=== PATIENT | female | born 1950 | race Caucasian/White ===

== ENCOUNTER 2021-09-13 01:02 | Day surgery (SDC) | payer MEDICARE, OTHER, SELFPAY ==
[2021-08-25 14:54] VITALS: BMI 30.2
--- NOTE | 2021-09-12 18:42 | PM.HPGS ---
History of Present Illness History of Present Illness Consent: Risks, benefits, and alternatives have been discussed and questions answered. Patient agrees to proceed with procedure. Chief complaint: hx of colon polyps Narrative: Candie Rosas is a 71 year old female Referred for colon cancer screening. She has history of polyps having had polyps removed when she lived in [place]. Review of Systems Review of Systems: All systems reviewed & are unremarkable except as noted in HPI and below PMFSH Past Medical History Medical History Kidney stones Osteopathia Family History Family History Father Hypertension Mother Ovarian ca Social History Social History Smoking status: Never smoker Alcohol intake: current Drinks per week: 3 Living arrangements: with family Spiritual care concerns: No Meds Home Medications and Allergies Home Medications Medication Instructions Recorded Confirmed Type butyrate 1,000 mg PO DAILY 08/03/21 08/25/21 History loratadine 10 mg tablet (Claritin) 10 mg PO DAILY 08/03/21 08/25/21 History magnesium 250 mg tablet 500 mg PO DAILY 08/03/21 08/25/21 History melatonin 10 mg capsule 10 mg PO QHS 08/03/21 08/25/21 History multivitamin (Daily Multi-Vitamin 1 tablet PO DAILY 08/03/21 08/25/21 History tablet) omeprazole magnesium 20 mg 20 mg PO DAILY 3 months #90 tabs 08/03/21 08/25/21 Rx tablet,delayed release (Prilosec OTC) Lactobacillus 1 cap PO DAILY 08/25/21 08/25/21 History acidophilus-Bifidobac.animalis 2.5 billion cell capsule (Daily Probiotic) ubidecarenone-omega 3-vit E 50 1 cap PO 3XW 08/25/21 08/25/21 History mg-300 (180-120)mg-30 unit capsule Allergies Allergy/AdvReac Type Severity Reaction Status Date / Time ezetimibe [From Zetia] Allergy Unknown Unknown Verified 09/13/21 09:04 levofloxacin [From Levaquin] Allergy Unknown Unknown Verified 09/13/21 09:04 Sulfa (Sulfonamide Allergy Unknown Unknown Verified 09/13/21 09:04 Antibiotics) Sodium tripolyphosphate Allergy Unknown Unknown Uncoded 09/13/21 09:04 Exam Resp: Auscultation: clear to auscultation bilaterally Cardio: Rate: regular rate Rhythm: regular rhythm GI: GI Palp: Yes Soft to palpation and No Tenderness to palpation present (GI) Assessment and Plan Assessment and plan (1) Colon cancer screening: Code(s): Z12.11 - Encounter for screening for malignant neoplasm of colon Status: Acute Assessment and Plan: Colonoscopy with possible biopsy or polypectomy or cautery or injection of substances.
[2021-09-13 09:05] VITALS: BP 125/81; PULSE 94; RESP 20; TEMP 36.9; O2SAT 98; BMI 29.3
[2021-09-13] MEDS: LACTATED RINGERS 1,000 ML 150 ML IV CONT (09:14)
--- NOTE | 2021-09-13 09:53 | P.PNAN_ITS ---
Anes - Initial Pre Proc Eval Procedure: Operation Date: 09/13/21 10:30 Proposed Procedures p Screening Colonoscopy - Bratxon Lima MD Date/Time: 09/13/21 09:53 Surgeon: Braxton Lima MD Pre Op Diagnosis: hx of colon polyps Patient Data Age: 71 Gender: F Height: 1.57 m Weight: 72.8 kg Last Vital Signs Temp 98.5 F 09/13/21 09:05 Pulse 94 09/13/21 09:05 Resp 20 09/13/21 09:05 BP 125/81 09/13/21 09:05 Pulse Ox 98 09/13/21 09:05 O2 Del Method Room Air 09/13/21 09:05 Allergies Allergy/AdvReac Type Severity Reaction Status Date / Time ezetimibe [From Zetia] Allergy Unknown Unknown Verified 09/13/21 09:04 levofloxacin [From Levaquin] Allergy Unknown Unknown Verified 09/13/21 09:04 Sulfa (Sulfonamide Allergy Unknown Unknown Verified 09/13/21 09:04 Antibiotics) Sodium tripolyphosphate Allergy Unknown Unknown Uncoded 09/13/21 09:04 Home Medications Medication Instructions Recorded Confirmed Type butyrate 1,000 mg PO DAILY 08/03/21 08/25/21 History loratadine 10 mg tablet (Claritin) 10 mg PO DAILY 08/03/21 08/25/21 History magnesium 250 mg tablet 500 mg PO DAILY 08/03/21 08/25/21 History melatonin 10 mg capsule 10 mg PO QHS 08/03/21 08/25/21 History multivitamin (Daily Multi-Vitamin 1 tablet PO DAILY 08/03/21 08/25/21 History tablet) omeprazole magnesium 20 mg 20 mg PO DAILY 3 months #90 tabs 08/03/21 08/25/21 Rx tablet,delayed release (Prilosec OTC) Lactobacillus 1 cap PO DAILY 08/25/21 08/25/21 History acidophilus-Bifidobac.animalis 2.5 billion cell capsule (Daily Probiotic) ubidecarenone-omega 3-vit E 50 1 cap PO 3XW 08/25/21 08/25/21 History mg-300 (180-120)mg-30 unit capsule Patient hx anesthesia problems: none Family hx anesthesia problems: none Results Review: All pre-operative results and documents have been reviewed as part of the pre- operative evaluation. PMFSH Past Medical History Medical History (Updated 09/12/21 @ 18:43 by Braxton Lima MD) Kidney stones Osteopathia Family History Family History (Updated 08/03/21 @ 08:43 by Nathalia Daniels MA) Father Hypertension Mother Ovarian ca Social History Social History Smoking status: Never smoker Alcohol intake: current Drinks per week: 3 Living arrangements: with family Spiritual care concerns: No Anes - Eval Final PreProcedure Day of Procedure 09/13/21 09:53 Patient weight: normal Heart: regular rate and rhythm Lungs: clear to auscultation Airway: Mallampati scale class II Neurological: alert and oriented Last oral intake: >/= 8 hours ASA classification: II Emergent: no Anesthetic plan: proceed Anesthesia type and monitoring: general GIVS and standard monitoring Results Review: All pre-operative results and documents have been reviewed as part of the pre- operative evaluation. Informed Consent: The patient's anesthetic plan and its attendant risks and benefits were discussed with the patient/family/POA. Questions were solicited and answers provided to the satisfaction of the patient/family/POA.
[2021-09-13 10:32] VITALS: BP 99/57; PULSE 77; RESP 20; O2SAT 99
[2021-09-13 10:42] VITALS: BP 114/73; PULSE 72; RESP 22; O2SAT 100
[2021-09-13 10:52] VITALS: BP 118/69; PULSE 70; RESP 20; O2SAT 100
== END 2021-09-13 11:00 | disposition home or self-care (01) ==
PROVIDERS: PCP Family Medicine; Visit Provider Internal Medicine Gastroenterology
PROC: 0DJD8ZZ Inspection of Lower Intestinal Tract, Via Natural or Artificial Opening Endoscopic (ICD-10-PCS; CPT 45378; principal; 2021-09-13 10:30)
DX: Z12.11 Encounter for screening for malignant neoplasm of colon (principal); K57.30 Diverticulosis of large intestine without perforation or abscess without bleeding; K62.1 Rectal polyp
CPT/HCPCS: 45380; 88305; J2704; J7120

== ENCOUNTER 2021-10-19 10:20 | Outpatient (CLI) | payer MEDICARE, OTHER, SELFPAY ==
[2021-10-19 10:45] LABS: Hematocrit 44.5 % (37.0-47.0); Hemoglobin 14.5 g/dL (12.0-15.0); Mean Corpuscular HGB Conc 32.6 g/dl (32-36); Mean Corpuscular Volume 101.4 fl (80-100); Mean Platelet Volume 8.7 fl (7.4-10.4); Platelet Count Result 278 k/mm3 (150-375); Red Blood Count 4.39 M/mm3 (4.2-5.4); Red Cell Distribution Width 13.3 % (11.5-14.5); White Blood Count 6.4 K/mm3 (4.5-10.0)
[2021-10-19 10:56] LABS: Alanine Aminotransferase 30 U/L (6-35); Albumin Level 4.1 g/dL (3.5-5.1); Alkaline Phosphatase 80 U/L (38-126); Anion Gap 7 mmol/L (8-16); Aspartate Amino Transferase 31 U/L (14-36); Bilirubin,Total 0.7 mg/dL (0.2-1.3); Blood Urea Nitrogen 21 mg/dL (7-17); Calcium 9.3 mg/dL (8.4-10.2); Carbon Dioxide 29 mmol/L (22-30); Chloride 101 mmol/L (98-107); Estimated Glomerular Filt Rate > 60; Glucose 98 mg/dL (65-110); Potassium 4.2 mmol/L (3.4-5.0); Sodium 137 mmol/L (137-145)
== END 2021-10-19 10:21 | disposition home or self-care (01) ==
LOC: ANHLAB 10:23
PROVIDERS: PCP Family Medicine; Visit Provider Nurse Practitioner Family
DX: D12.6 Benign neoplasm of colon, unspecified (principal); R10.32 Left lower quadrant pain
CPT/HCPCS: 36415; 80053; 85027

== ENCOUNTER 2021-10-26 07:30 | Outpatient (CLI) | payer MEDICARE, OTHER, SELFPAY ==
--- NOTE | ~2021-10-26 | CT_ITS ---
EXAMINATION: CT abdomen pelvis w con DATE: 10/26/2021 08:01 INDICATION: Left lower quadrant abdominal pain. TECHNIQUE: Computed tomography (CT) of the abdomen and pelvis was performed with 100 mL Omnipaque 350 intravenous contrast. Automated exposure control and iterative reconstruction technique were employe d. The dose-length product was 403.96 mGy-cm. COMPARISON: None. FINDINGS: The visualized portions of the lung bases demonstrate mild atelectasis. No pleural effusion . There are size is normal. No pericardial effusion. There is a small sliding hiatal hernia. There is a 5 mm cyst in the liver. The gallbladder is normal. Calcifications in the spleen are consistent wit h old granulomatous disease. The pancreas and adrenal glands are normal. There is a 7 mm cyst in righ t kidney. There are two 2 mm stones in right kidney. There is cortical thinning of left kidney. There is a 3 mm stone in left kidney. There are scattered diverticula in the colon. There is fat stranding around an epiploic appendage of the sigmoid colon, consistent with epiploic appendagitis. There are no dilated loops of bowel. The appendix is not visualized. There are no pathologically enlarged lymph nodes. There is no free intraperitoneal fluid. There is an umbilical hernia containing fat. There is severe lower lumbar spondylosis. There is a hemangioma in L1 vertebral body. IMPRESSION: 1. Epiploic appendagitis of the sigmoid colon. Reviewed, dictated and finalized at location A.
== END 2021-10-26 07:31 | disposition home or self-care (01) ==
PROVIDERS: PCP Family Medicine; Visit Provider Nurse Practitioner Family
DX: R10.9 Unspecified abdominal pain (principal); K63.89 Other specified diseases of intestine
CPT/HCPCS: 74177; Q9967

== ENCOUNTER → 2022-03-26 14:46 | Outpatient (CLI) | payer MEDICARE, OTHER, SELFPAY ==
--- NOTE | ~2022-03-26 | US_ITS ---
EXAMINATION: US renal BI DATE: 03/26/2022 15:08 INDICATION: Kidney stone TECHNIQUE: Multiple grayscale and Doppler ultrasound images of the kidneys were obtained. COMPARISON: CT abdomen and pelvis 10/26/2021. FINDINGS: The right kidney measures 9.6 x 4.9 x 4.0 cm. The left kidney measures 9.7 x 5.1 x 5.0 cm. The kidney s demonstrate cortical thinning and increased parenchymal echogenicity. 8 mm simple right midpole cys t. Echogenic focus in the right inferior pole, with twinkle artifact but no shadowing. Echogenic focu s in the left lower kidney, without shadowing or twinkle artifact. There is mild right pelviectasis. The bladder is normal. IMPRESSION: Medical renal disease. Mild bilateral renal atrophy. Bilateral echogenic foci likely represent the pr eviously documented nephroliths. Mild right pelviectasis. Reviewed, dictated and finalized at location K. ANALYST IMPRESSION: Medical renal disease. Mild bilateral renal atrophy. Bilateral echogenic foci l ikely represent the previously documented nephroliths. Mild right pelviectasis.
== END ==
PROVIDERS: PCP Family Medicine; Visit Provider Urology
DX: N20.0 Calculus of kidney (principal)
CPT/HCPCS: 76775

== ENCOUNTER 2022-07-24 16:30 | Outpatient (CLI) | payer MEDICARE, OTHER, SELFPAY ==
--- NOTE | ~2022-07-24 | XR_ITS ---
Clinical Indication: Cough PA and lateral views of the chest: Comparison: None Findings: The lungs are clear, without evidence of focal consolidation or pleural effusion. Cardiome diastinal silhouette is within normal limits. Bones and soft tissues are unremarkable. Impression: Normal chest. Reviewed, dictated and finalized at location . Impression: Normal chest.
== END 2022-07-24 16:31 | disposition home or self-care (01) ==
PROVIDERS: PCP Family Medicine; Visit Provider Family Medicine
DX: R05.9 Cough, unspecified (principal)
CPT/HCPCS: 71046

== ENCOUNTER 2022-08-14 14:09 | Outpatient (CLI) | payer MEDICARE, OTHER, SELFPAY ==
[2022-08-14 14:56] LABS: Appearance Urine Cloudy (Clear); Bacteria Urine None Seen /hpf; Bilirubin Urine Negative (Negative); Blood Urine Negative (Negative); Color Urine Yellow (Yellow); Glucose Urine UA Negative (Negative); Ketones Urine Negative (Negative); Leukocyte Esterase Ur 1+ LEU/UL (NEGATIVE); Nitrate Urine Negative (Negative); Non Pathogenic Casts 0-2; Protein Urine Negative (Negative); RBC Urine 0-2 /hpf (0-2); Specific Grav Ur 1.018 (1.001-1.035); Squamous Epithelial Cell Urine None seen /hpf (Few); Urobilinogen Urine 0.2 mg/dL (<2.0)
[2022-08-14 14:59] LABS: Add Urine Microscopic? YES
[2022-08-14 15:25] LABS: Anion Gap 5 mmol/L (8-16); Blood Urea Nitrogen 34 mg/dL (7-17); Carbon Dioxide 32 mmol/L (22-30); Chloride 101 mmol/L (98-107); Estimated Glomerular Filt Rate > 60; Glucose 95 mg/dL (65-110); Phosphorus 4.6 mg/dL (2.5-4.5); Sodium 138 mmol/L (137-145)
[2022-08-14 15:28] LABS: Creatinine Urine 60.9 mg/dL; Total Protein Urine Random 6 mg/dL
== END 2022-08-14 14:10 | disposition home or self-care (01) ==
PROVIDERS: PCP Family Medicine; Visit Provider Internal Medicine Nephrology
DX: N20.0 Calculus of kidney (principal); N26.1 Atrophy of kidney (terminal)
CPT/HCPCS: 36415; 80069; 81001; 82570; 84156

== ENCOUNTER 2023-03-29 12:00 | Outpatient (CLI) | payer MEDICARE, OTHER, SELFPAY ==
[2023-03-29 13:01] LABS: Basophils Absolute Auto 0.1 K/mm3 (0.0-0.1); Basophils Percent Auto 1.2 % (0.2-1.2); Eosinophils Absolute Auto 0.2 K/mm3 (0-0.3); Eosinophils Percent Auto 4.8 % (0-4.4); Hematocrit 46.2 % (37.0-47.0); Hemoglobin 14.8 g/dL (12.0-15.0); Immature Granulocyte Absolute 0.01 K/mm3 (0.00-0.031); Immature Granulocyte Percent A 0.2 % (0-0.5); Lymphocytes Absolute Auto 1.85 K/mm3 (0.9-3.2); Lymphocytes Percent Auto 37.1 % (18.3-44.2); Mean Corpuscular Hemoglobin 32.4 pg (26-34); Mean Corpuscular Volume 101.1 fl (80-100); Mean Platelet Volume 8.9 fl (7.4-10.4); Monocytes Absolute Auto 0.6 K/mm3 (0.1-0.6); Neutrophils Absolute Auto 2.2 K/mm3 (1.3-6.7); Neutrophils Percent Auto 44.7 % (45.5-73.1); Platelet Count Result 320 k/mm3 (150-375); Red Blood Count 4.57 M/mm3 (4.2-5.4); Red Cell Distribution Width 13.4 % (11.5-14.5)
[2023-03-29 13:12] LABS: Alanine Aminotransferase 44 U/L (6-35); Albumin Level 4.4 g/dL (3.5-5.1); Alkaline Phosphatase 85 U/L (38-126); Anion Gap 8 mmol/L (8-16); Aspartate Amino Transferase 45 U/L (14-36); Bilirubin,Total 0.6 mg/dL (0.2-1.3); Blood Urea Nitrogen 25 mg/dL (7-17); Calcium 9.5 mg/dL (8.4-10.2); Carbon Dioxide 27 mmol/L (22-30); Chloride 105 mmol/L (98-107); Cholesterol 288 mg/dL (0-200); Estimated Glomerular Filt Rate > 60; Glucose 91 mg/dL (65-110); HDL Direct 59 mg/dL; Potassium 4.5 mmol/L (3.4-5.0); Sodium 140 mmol/L (137-145); Triglycerides 187 mg/dL (<150)
[2023-03-29 13:23] LABS: LDL Cholesterol Direct 172 mg/dL
[2023-03-29 13:41] LABS: Vitamin D 25 Hydroxy 39.6 ng/mL
== END 2023-03-29 12:01 | disposition home or self-care (01) ==
LOC: ANHLAB 12:25
PROVIDERS: PCP Family Medicine; Visit Provider Family Medicine
DX: E55.9 Vitamin D deficiency, unspecified (principal); E78.5 Hyperlipidemia, unspecified; R00.2 Palpitations
CPT/HCPCS: 36415; 80048; 80061; 80076; 82306; 83735; 84443; 85025

== ENCOUNTER → 2023-04-16 08:41 | Outpatient (CLI) | payer MEDICARE, OTHER, SELFPAY ==
--- NOTE | ~2023-04-16 | US_ITS ---
Renal-Bladder ultrasound Clinical History: Kidney stone Technique: Real-time sonographic imaging of the kidneys and urinary bladder was performed. Findings: The right kidney measures 9.5 cm in length and the left kidney measures 9.3 cm. There is no hydronephrosis or renal calculus identified. Renal cortical echogenicity is within normal limits. No renal mass lesion is identified. The urinary bladder is moderately distended at the time of this exam. No intraluminal echoes are iden tified. No abnormal wall thickening is seen. Impression: Unremarkable ultrasound of the kidneys and urinary bladder. Reviewed, dictated and finalized at location . [employer] DRI[employer]ER Impression: Unremarkable ultrasound of the kidneys and urinary bladder.
== END ==
PROVIDERS: PCP Family Medicine; Visit Provider Urology
DX: N20.0 Calculus of kidney (principal)
CPT/HCPCS: 76775

== ENCOUNTER 2023-04-16 09:24 | Outpatient (CLI) | payer MEDICARE, OTHER, SELFPAY ==
[2023-04-16 11:05] LABS: Folic Acid > 20.0 ng/mL (2.76->20)
== END 2023-04-16 09:25 | disposition home or self-care (01) ==
LOC: ANHLAB 09:27
PROVIDERS: PCP Family Medicine; Visit Provider Family Medicine
DX: E53.8 Deficiency of other specified B group vitamins (principal)
CPT/HCPCS: 36415; 82607; 82746

== ENCOUNTER 2023-06-27 09:57 | Outpatient (CLI) | payer MEDICARE, OTHER, SELFPAY ==
[2023-06-27 10:50] LABS: Hematocrit 46.1 % (37.0-47.0); Mean Corpuscular HGB Conc 32.5 g/dl (32-36); Mean Corpuscular Hemoglobin 32.5 pg (26-34); Mean Platelet Volume 9.1 fl (7.4-10.4); Platelet Count Result 294 k/mm3 (150-375); Red Blood Count 4.61 M/mm3 (4.2-5.4); Red Cell Distribution Width 13.3 % (11.5-14.5); White Blood Count 5.1 K/mm3 (4.5-10.0)
[2023-06-27 11:07] LABS: Alanine Aminotransferase 37 U/L (6-35); Albumin Level 4.5 g/dL (3.5-5.1); Alkaline Phosphatase 82 U/L (38-126); Anion Gap 7 mmol/L (4-12); Aspartate Amino Transferase 37 U/L (14-36); Bilirubin,Total 0.6 mg/dL (0.2-1.3); Blood Urea Nitrogen 30 mg/dL (7-17); CRP < 0.5 mg/dL (<1.0); Calcium 9.8 mg/dL (8.4-10.2); Carbon Dioxide 28 mmol/L (22-30); Chloride 105 mmol/L (98-107); Estimated Glomerular Filt Rate > 60; Glucose 96 mg/dL (65-110); Potassium 4.2 mmol/L (3.4-5.0); Sodium 140 mmol/L (137-145)
[2023-06-27 11:19] LABS: Erythrocyte Sedimentation Rate 2 mm/hr (0-20)
== END 2023-06-27 09:58 | disposition home or self-care (01) ==
LOC: ANHLAB 10:02
PROVIDERS: PCP Family Medicine; Visit Provider Nurse Practitioner Family
DX: R10.9 Unspecified abdominal pain (principal); T78.40XA Allergy, unspecified, initial encounter
CPT/HCPCS: 36415; 80053; 85027; 85652; 86140

== ENCOUNTER 2023-07-08 14:30 | Outpatient (CLI) | payer MEDICARE, OTHER, SELFPAY ==
--- NOTE | ~2023-07-08 | CT_ITS ---
EXAMINATION: CT abdomen pelvis w con DATE: 07/08/2023 14:57 INDICATION: R10.9 - Unspecified abdominal pain TECHNIQUE: Computed tomography (CT) of the abdomen and pelvis was performed with 100 mL Omnipaque-350 intravenous contrast. Automated exposure control and iterative reconstruction technique were employe d. The dose-length product was 602.96 mGy-cm. COMPARISON: 10/26/2021. FINDINGS: Lower thorax: Mild dependent atelectasis and senescent change. Subcentimeter air cyst in the right mi ddle lobe. Left lower lobe scar. Liver: Normal. Biliary/Gallbladder: Gallbladder is normal. No bile duct dilation. Pancreas: Mild atrophy. Spleen: Granulomatous calcifications. Adrenals:No mass. Kidneys: No suspicious mass, obstructing stone, or hydronephrosis. Simple right midpole cyst. Bilater al 3-4 mm nonobstructing calculi. GI tract: Small hiatal hernia. Mild distal esophageal and gastric wall edema. No small or large bowel dilation. Appendix surgically absent. Scattered diverticuli. Small focus of pericolonic inflammatory change in the mid descending colon with inflammation of an adjacent diverticulum. Mesentery/Peritoneum: No ascites, mass, or free air. Retroperitoneum: No mass. Pelvis: Pelvic organs are within normal limits. Soft Tissues: Small fat-containing uncomplicated umbilical hernia. Bones: No acute osseous finding. L1 hemangioma. IMPRESSION: Mild esophagitis/gastritis. Acute uncomplicated diverticulitis of the descending colon. Reviewed, dictated and finalized at location K.
== END 2023-07-08 14:31 | disposition home or self-care (01) ==
PROVIDERS: PCP Family Medicine; Visit Provider Nurse Practitioner Family
DX: R10.9 Unspecified abdominal pain (principal); Z87.19 Personal history of other diseases of the digestive system; K21.9 Gastro-esophageal reflux disease without esophagitis
CPT/HCPCS: 74177; Q9967

== ENCOUNTER 2023-07-26 08:35 | Outpatient (CLI) | payer MEDICARE, OTHER, SELFPAY ==
--- NOTE | ~2023-07-26 | CT_ITS ---
EXAMINATION: CT abdomen pelvis w con DATE: 07/26/2023 08:52 INDICATION: Left lower quadrant abdominal pain. TECHNIQUE: Computed tomography (CT) of the abdomen and pelvis was performed with 100 mL Omnipaque 350 intravenous contrast. Automated exposure control and iterative reconstruction technique were employe d. The dose-length product was 311.93 mGy-cm. COMPARISON: CT abdomen and pelvis 07/08/2023 FINDINGS: The visualized portions of the lung bases demonstrate mild atelectasis. No pleural effusion . The heart size is normal. No pericardial effusion. There is a small sliding hiatal hernia. The live r, gallbladder, and pancreas are normal. Calcifications in the spleen are consistent with old granulo matous disease. The adrenal glands are normal. There is a 9 mm cyst in right kidney. There are 3 ston es in right kidney measuring up to 3 mm. There is cortical thinning of left kidney. There is a 3 mm s tone in left kidney. There is an umbilical hernia containing fat. There are scattered diverticula in the colon. The previously seen inflammation around the descending colon is no longer present. There i s chronic fat necrosis involving an epiploic appendage of the sigmoid colon. There are no dilated loo ps of bowel. The appendix is not visualized. There are no pathologically enlarged lymph nodes. There is no free intraperitoneal fluid. There is severe lumbar spondylosis. There is a hemangioma in L1 yanet tebral body. IMPRESSION: 1. No etiology for the patient's symptoms. 2. Small sliding hiatal hernia. 3. Umbilical hernia containing fat. Reviewed, dictated and finalized at location A.
[2023-07-26 09:45] LABS: Hematocrit 46.6 % (37.0-47.0); Hemoglobin 14.9 g/dL (12.0-15.0); Mean Corpuscular Hemoglobin 32.3 pg (26-34); Mean Corpuscular Volume 100.9 fl (80-100); Mean Platelet Volume 8.8 fl (7.4-10.4); Platelet Count Result 294 k/mm3 (150-375); Red Blood Count 4.62 M/mm3 (4.2-5.4); Red Cell Distribution Width 13.2 % (11.5-14.5); White Blood Count 4.4 K/mm3 (4.5-10.0)
[2023-07-26 09:56] LABS: Alanine Aminotransferase 27 U/L (6-35); Albumin Level 4.1 g/dL (3.5-5.1); Alkaline Phosphatase 78 U/L (38-126); Anion Gap 5 mmol/L (4-12); Aspartate Amino Transferase 34 U/L (14-36); Bilirubin,Total 0.6 mg/dL (0.2-1.3); Blood Urea Nitrogen 20 mg/dL (7-17); Calcium 9.2 mg/dL (8.4-10.2); Carbon Dioxide 27 mmol/L (22-30); Chloride 105 mmol/L (98-107); Estimated Glomerular Filt Rate > 60; Glucose 85 mg/dL (65-110); Potassium 4.3 mmol/L (3.4-5.0); Sodium 137 mmol/L (137-145)
== END 2023-07-26 08:36 | disposition home or self-care (01) ==
LOC: ANHIMG 08:37
PROVIDERS: Visit Provider Nurse Practitioner Family
DX: K57.92 Diverticulitis of intestine, part unspecified, without perforation or abscess without bleeding (principal); T78.40XA Allergy, unspecified, initial encounter; K44.9 Diaphragmatic hernia without obstruction or gangrene; K42.9 Umbilical hernia without obstruction or gangrene
CPT/HCPCS: 36415; 74177; 80053; 85027; Q9967

== ENCOUNTER 2023-09-09 09:14 | Outpatient (CLI) | payer MEDICARE, OTHER, SELFPAY ==
--- NOTE | ~2023-09-09 | DEXA_ITS ---
Bone Density Report Name: SLICK PUGH Age: 73 Sex: Female Ethnicity: White Date of : 1950 Indication: postmenopausal; screening for osteoporosis; inflammatory bowel disease; history of glucocorticoids; Referring Provider: ELENI, RAMON Brown Study: Bone densitometry was performed. Exam Date: September 09, 2023 Accession number: [id number] Bone Density: Region BMD T-score Z-score Classification AP Spine(L1-L4) 0.801 -2.2 0.0 Osteopenia Femoral Neck (Left) 0.632 -2.0 0.0 Osteopenia Total Hip (Left) 0.781 -1.3 0.3 Osteopenia Femoral Neck (Right) 0.621 -2.0 -0.1 Osteopenia Total Hip (Right) 0.784 -1.3 0.3 Osteopenia Total Hip Mean 0.782 -1.3 0.3 Osteopenia World Health Organization criteria for BMD impression classify patients as: Normal (T-score at or above -1.0), Osteopenia (T-score between -1.0 and -2.5), or Osteoporosis (T-score at or below -2.5). 10-year Fracture Risk(1): Major Osteoporotic Fracture 19% Hip Fracture 4.8% Reported Risk Factors: [place] (), Neck BMD=0.621, BMI=29.4, glucocorticoids (1) FRAX(R) Version 3.08. Fracture probability calculated for an untreated patient. Fracture probability may be lower if the patient has received treatment. Clinical Information Provided by Patient: Has taken Glucocorticoids Has used the following medications: Vitamin D Has the following medical conditions: Inflammatory bowel diseases Patient maximum height was 62.5 Menopause Age: 53 No regular weight bearing exercise Drinks caffeinated beverages Onset of menses at age 12 Number of children 3 Impression: The patient has low bone mass, based on the Total Spine T-score. The patient has an estimated ten-year risk of hip fracture of 4.8% and an estimated ten-year risk of major fracture of 19%, based on the WHO FRAX algorithm. The patient has risk factors, including: history of glucocorticoid therapy. Discussion: BONE DENSITY IS LOW AT ONE OR MORE SKELETAL SITES. THE PATIENT'S BMD AND CLINICAL RISK FACTORS CONTRIBUTE TO THIS PATIENT'S INCREASED RISK OF FRACTURE. This patient's lowest T-score is low at one or more skeletal sites. It meets the World Health Organization's (WHO) criteria for ?low bone mass? (T-score between -1.0 and -2.5). The patient's 10-year risk of hip fracture as calculated by FRAX exceeds the threshold where pharmacological therapy is recommended by the National Osteoporosis Foundation (NOF). However, all treatment decisions require clinical judgment and consideration of individual patient factors, including patient preferences, comorbidities, previous drug use, risk factors not captured in the FRAX model (e.g., frailty, falls, vitamin D deficiency, increased bone turnover, interval significant decline in bone density) and possible under or overestimation o
== END 2023-09-09 09:15 | disposition home or self-care (01) ==
LOC: ANHIMG 09:15
PROVIDERS: PCP Nurse Practitioner Family; Visit Provider Physician Assistant
DX: Z78.0 Asymptomatic menopausal state (principal); M85.88 Other specified disorders of bone density and structure, other site; M85.852 Other specified disorders of bone density and structure, left thigh; M85.851 Other specified disorders of bone density and structure, right thigh
CPT/HCPCS: 77080